=== PATIENT | male | born 1965 | race Caucasian/White ===

== ENCOUNTER 2016-07-15 14:57 | Emergency (ER) | payer MEDICARE, OTHER ==
[~2016-07-15 14:57] MED LIST: BICARSIM80 MG GT; CARAFATE SU1 G/10 ML PO; FLEET ENEMA133 ML PR; FREE WATER; HYDROCODON-ACE1 EAC2 GT; K-DUR TAB 20 M20 MEQ GT; KLONOPIN TAB 00.5 MG GT; LIORESAL TAB 1010 MG GT; MIRALAX17 GM PO; MIRTAZAPINE30 MG GT; RILUZOLE50 MG GT; SENNA S TABLET1 EACH PO; ZYRTEC10 M3 GT; [UNRECOGNIZED DRUG - MIXTURE]; [UNRECOGNIZED DRUG - OTHER] PO
[2016-07-15 16:35] LABS: HEMOGLOBIN 16.5 gm/dl (14.0-17.5); RED BLOOD COUNT 5.47 M/UL (4.20-5.50); WHITE BLOOD COUNT 4.6 K/UL (4.5-11.0)
[2016-07-15 16:56] LABS: BUN/CREATININE RATIO 60 (0-10)
[2016-11-05] MEDS ORDERED: ALBUTEROL 2.5MG/3ML INH (19:53)
[2016-11-05] MEDS ORDERED: CEROVITE L9 MG/15 ML GT (19:54)
[2016-11-05] MEDS ORDERED: COLCHICINE0.6 MG GT (19:55)
[2016-11-05] MEDS ORDERED: PREVACID 30 MG30 MG GT (19:56)
[2016-11-05] MEDS ORDERED: MICONAZOLE NITRATE TOP (20:01)
[2016-11-05] MEDS ORDERED: CARAFATE SU100 MG/ML GT (20:02)
[2016-11-05] MEDS ORDERED: ZINC OXIDE TOP (20:17)
[2016-11-11] MEDS ORDERED: AUGMENTIN TAB875 MG GT (11:30)
[2016-11-11] MEDS ORDERED: BENEPROTEIN1 EACH GT ×2 (11:38→11:39)
== END 2016-07-15 20:13 | disposition home or self-care (01) ==
LOC: ER1 14:57
PROVIDERS: Emergency Medicine
DX: R40.4 Transient alteration of awareness (principal); R00.1 Bradycardia, unspecified; G12.21 Amyotrophic lateral sclerosis; R79.89 Other specified abnormal findings of blood chemistry; R77.8 Other specified abnormalities of plasma proteins; Z90.49 Acquired absence of other specified parts of digestive tract; Z88.1 Allergy status to other antibiotic agents; Z88.5 Allergy status to narcotic agent; Z79.899 Other long term (current) drug therapy
CPT/HCPCS: 36415; 36600; 70450; 71010; 80053; 81001; 82803; 83605; 84484; 85025; 87040; 87077; 87186; 93005; 99284

== ENCOUNTER → 2020-05-16 | Outpatient (CLI) | payer MEDICARE, OTHER ==
[~2020-05-16] MED LIST changes: +ALBUTEROL 2.5MG/3ML INH; +AUGMENTIN TAB875 MG GT; +BENEPROTEIN1 EACH GT; +CARAFATE SU100 MG/ML GT; +CEROVITE L9 MG/15 ML GT; +COLCHICINE0.6 MG GT; +DOCUSATE SODIU1 EACH GT; +INVANZ1 GM IV; +LEVOPHED BI1 MG/1 M1 IV; +MELATONIN3 MG GT; +MICONAZOLE NITRATE TOP; +MIRALAX17 GM GT; +MULTIVITAMIN GT; +NORMAL SALINE FL5 ML IV; +ORAZINC220 MG GT; +PREVACID 30 MG30 MG GT; +TYLENOL 325MG325 MG GT; +VANCOCIN 125MG/2.5ML IV; +VITAMIN C 500500 MG GT; +ZINC OXIDE TOP; +ZYLOPRIM 100 M100 MG GT; +[UNRECOGNIZED DRUG - OTHER] GT; -[UNRECOGNIZED DRUG - OTHER] PO
== END ==
LOC: LAB 17:59
PROVIDERS: Internal Medicine Critical Care Medicine
DX: N18.9 Chronic kidney disease, unspecified (principal)
CPT/HCPCS: 80048

== ENCOUNTER 2020-07-13 14:42 | Emergency (ER) | payer MEDICARE, OTHER | END 2020-07-13 16:54 | disposition home or self-care (01) | LOC: ER1 14:42 | DX: N39.0 Urinary tract infection, site not specified (principal); G12.21 Amyotrophic lateral sclerosis; Z20.822 Contact with and (suspected) exposure to COVID-19 | CPT/HCPCS: 96374; 99285; J7030; U0002 ==